=== PATIENT | female | born 1970 | race Two or more races ===

== ENCOUNTER 2023-04-29 09:47 | Emergency (ER) | payer OTHER, MEDICAID ==
[~2023-04-29] VITALS: Ht 157.5 cm; Wt 73.0 kg
[2023-04-29 10:43] VITALS: BP 142/69; PULSE 70; RESP 16; TEMP 98; O2SAT 98
[2023-04-29] MEDS ORDERED: CYCL-839 PO (11:50)
[2023-04-29] MEDS ORDERED: IBUP-1454 PO (11:50)
[2023-04-29] MEDS ORDERED: ACET500T58 PO (11:50)
== END 2023-04-29 11:57 | disposition home or self-care (01) ==
LOC: ER 09:47 → EDBD 09:47 → ER 11:57
DX: S16.1XXA Strain of muscle, fascia and tendon at neck level, initial encounter (principal); S39.012A Strain of muscle, fascia and tendon of lower back, initial encounter; Z88.6 Allergy status to analgesic agent; V43.52XA Car driver injured in collision with other type car in traffic accident, initial encounter; Y93.89 Activity, other specified; Y92.410 Unspecified street and highway as the place of occurrence of the external cause; Y99.8 Other external cause status
CPT/HCPCS: 71046; 72040; 72100